=== PATIENT | female | born 1970 | race Caucasian/White ===

== ENCOUNTER 2023-07-05 00:54 | Day surgery (SDC) | payer BC, SELFPAY ==
[2023-06-23 08:37] VITALS: BMI 23.1
[2023-07-05 07:20] VITALS: BP 131/90; PULSE 67; RESP 20; TEMP 35.8; O2SAT 98
[2023-07-05] MEDS: LACTATED RINGERS 1,000 ML 150 ML IV CONT (07:32)
--- NOTE | 2023-07-05 07:52 | P.PNAN_ITS ---
Anes - Initial Pre Proc Eval Procedure: Operation Date: 07/05/23 08:30 Proposed Procedures p Screening Colonoscopy - Dean Mcguire MD Date/Time: 07/05/23 07:52 Surgeon: Dean Mcguire MD Pre Op Diagnosis: neoplasm screening Patient Data Age: 53 Gender: F Height: 1.83 m Weight: 71 kg Last Vital Signs Temp 35.8 C L 07/05/23 07:20 Pulse 67 07/05/23 07:20 Resp 20 07/05/23 07:20 BP 131/90 07/05/23 07:20 Pulse Ox 98 07/05/23 07:20 O2 Del Method Room Air 07/05/23 07:20 Allergies Allergy/AdvReac Type Severity Reaction Status Date / Time No Known Allergies Allergy Mild Verified 07/05/23 07:19 Home Medications Medication Instructions Recorded Confirmed Type alprazolam 0.25 mg tablet 500 mg PO PRN PRN Anxiety 06/23/23 06/23/23 History valacyclovir 500 mg tablet 500 mg PO PRN PRN fever blisters 06/23/23 06/23/23 History Patient hx anesthesia problems: none Family hx anesthesia problems: none Results Review: All pre-operative results and documents have been reviewed as part of the pre- operative evaluation. [facility] Social History Social History Smoking status: Never smoker Alcohol intake: current Drinks per week: 12 Alcohol use details: 2 drinks a night Substance use: never Substance use type: does not use Living arrangements: alone Spiritual care concerns: No Anes - Eval Final PreProcedure Day of Procedure 07/05/23 07:52 Patient weight: normal Heart: regular rate and rhythm Lungs: clear to auscultation Airway: Mallampati scale class 1 Neurological: alert and oriented Last oral intake: >/= 8 hours ASA classification: II Emergent: no Anesthetic plan: proceed Anesthesia type and monitoring: general GIVS and standard monitoring Results Review: All pre-operative results and documents have been reviewed as part of the pre- operative evaluation. Informed Consent: The patient's anesthetic plan and its attendant risks and benefits were discussed with the patient/family/POA. Questions were solicited and answers provided to the satisfaction of the patient/family/POA.
--- NOTE | 2023-07-05 08:04 | P.HP_ITS ---
History of Present Illness History of Present Illness Consent: Risks, benefits, and alternatives have been discussed and questions answered. Patient agrees to proceed with procedure. Chief complaint: neoplasm screening Narrative: Steff Green is a 53 year old female here for first screening colonoscopy Review of Systems Constitutional: Constitutional: Denies headache(s) and Denies weakness Eyes: Eyes: Denies blurry vision ENT: Reports Normal hearing present, Denies headache(s) and Denies neck pain Cardiovascular: Cardiovascular: Denies chest pain and Denies dyspnea Respiratory: Respiratory: Denies dyspnea Gastrointestinal: Gastrointestinal: Reports no additional gastrointestinal complaints Genitourinary: Genitourinary: Denies dysuria Musculoskeletal: Musculoskeletal: Denies neck pain Integumentary/Breasts: Skin/Breast: Denies dry skin Neurologic: Reports Normal hearing present, Denies headache(s) and Denies weakness Psychiatric: Psychiatric: Denies anxiety Endocrine: Endocrine: Denies change in body appearance Hematologic/Lymphatic: Hematologic/Lymphatic: Denies easy bleeding Allergic/Immunologic: Allergic/Immunologic: Denies urticaria [facility] Past Medical History Medical History (Updated 07/05/23 @ 08:05 by Dean Mcguire MD) Colon cancer screening Social History Social History Smoking status: Never smoker Alcohol intake: current Drinks per week: 12 Alcohol use details: 2 drinks a night Substance use: never Substance use type: does not use Living arrangements: alone Spiritual care concerns: No Meds Home Medications and Allergies Home Medications Medication Instructions Recorded Confirmed Type alprazolam 0.25 mg tablet 500 mg PO PRN PRN Anxiety 06/23/23 06/23/23 History valacyclovir 500 mg tablet 500 mg PO PRN PRN fever blisters 06/23/23 06/23/23 History Allergies Allergy/AdvReac Type Severity Reaction Status Date / Time No Known Allergies Allergy Mild Verified 07/05/23 07:19 Vital Signs Vital Signs - 24 hr 07/05/23 07:20 Temperature 96.5 F L Pulse Rate 67 Respiratory Rate 20 Blood Pressure 131/90 Pulse Oximetry 98 Oxygen Delivery Room Air Exam Const: General: comfortable and no acute distress HENMT: Face/Nose/Sinus: Normal nares present Eyes: General: appearance normal, both eyes and all related structures Neck: Neck: no JVD Resp: Auscultation: clear to auscultation bilaterally Cardio: Rate: regular rate Rhythm: regular rhythm GI: Inspection: non-distended GI Palp: Yes Soft to palpation Skin: General skin exam: normal color Neuro: General: gait normal Speech: normal speech Extrem: General: normal to inspection Psych: Mental Status: mental status grossly normal Assessment and Plan Assessment and plan (1) Colon cancer screening: Code(s): Z12.11 - Encounter for screening for malignant neoplasm of colon Status: Acute Assessment and Plan: colonoscopy
[2023-07-05 08:23] VITALS: BP 113/68; PULSE 77; RESP 19; O2SAT 99
[2023-07-05 08:33] VITALS: BP 128/80; PULSE 60; RESP 18; O2SAT 100
[2023-07-05 08:43] VITALS: BP 130/87; PULSE 69; RESP 25; O2SAT 100
== END 2023-07-05 08:47 | disposition home or self-care (01) ==
PROVIDERS: Referring Provider Obstetrics & Gynecology; Visit Provider Internal Medicine Gastroenterology
PROC: 0DJD8ZZ Inspection of Lower Intestinal Tract, Via Natural or Artificial Opening Endoscopic (ICD-10-PCS; CPT 45378; principal; 2023-07-05 08:30)
DX: Z12.11 Encounter for screening for malignant neoplasm of colon (principal)
CPT/HCPCS: 45378; J2704; J7120

== ENCOUNTER → 2023-12-08 14:48 | Outpatient (CLI) | payer BC, SELFPAY ==
--- NOTE | ~2023-12-08 | CT_ITS ---
EXAMINATION: CT abdomen pelvis wo con DATE: 12/08/2023 14:58 INDICATION: Abdominal cramping. Urinary tract infection. TECHNIQUE: Computed tomography (CT) of the abdomen and pelvis was performed without intravenous contr ast. Automated exposure control and iterative reconstruction technique were employed. Exam dose: 491 .80 mGy-cm total exam DLP. COMPARISON: None. FINDINGS: Bilateral breast implants. The lung bases are clear. Normal heart size. No pericardial or pleural effusion. The liver, gallbladder, bile ducts, spleen, pancreas, pancreatic duct, and adrenal glands and kidneys are unremarkable on this limited noncontrast examination. No urinary tract calculus or hydroureteron ephrosis. The urinary bladder is evacuated. The uterus and adnexal areas are unremarkable. Normal caliber of the abdominal aorta. No intraperitoneal or retroperitoneal or pelvic mass lesion or adenopathy or ascites. Normal appendix. No bowel obstruction, bowel wall thickening, pneumatosis or intraperitoneal free air is detected. Degenerative changes of the apophyseal joints with associated grade 1 anterolisthesis at L4-5. Modera tely prominent degenerative disease at L5-S1. Bilateral hip osteoarthritis, greater on the left. No suspicious osteolytic or osteoblastic lesions a re noted. IMPRESSION: Normal appendix No urinary tract calculus or hydroureteronephrosis Urinary bladder is evacuated, not optimally demonstrated Reviewed, dictated and finalized at Location A. Reviewed, dictated and finalized at location B. TESTER
--- NOTE | ~2023-12-08 | XR_ITS ---
XR foot RT min 3V DATE: 12/08/2023 16:05 INDICATION: Right foot pain TECHNIQUE: 4 views COMPARISON: None FINDINGS: There is diffuse osteopenia. There is angulation of the medial neck of the second metatarsal bone, with some periosteal reaction a long the medial aspect of the neck and distal shaft of the second metatarsal bone, suggesting a heali ng subtle nondisplaced fracture. No the other fracture, dislocation, periosteal reaction or bone destruction. There is some lucency in the head of the second metatarsal bone which may indicate osteoarthritic geovanna nge or avascular necrosis. There is moderate osteoarthritic change at the left second metatarsophalan geal joint. There is mild osteoarthritis at the first metatarsophalangeal joint. No erosive change is noted. IMPRESSION: Suspected healing subtle nondisplaced fracture of the neck of the second metatarsal bone Osteoarthritic changes at first and second metatarsophalangeal joints; focal lucency of the head of t he second metatarsal bone may be secondary to avascular necrosis or osteoarthritic change. Osteopenia and Reviewed, dictated and finalized at location A. VIORAL HEALTH WORKER IMPRESSION: Suspected healing subtle nondisplaced fracture of the neck of the s econd metatarsal bone Osteoarthritic changes at first and second metatarsophalangeal joints; focal maricruz cency of the head of the second metatarsal bone may be secondary to avascular n ecrosis or osteoarthritic change. Osteopenia and
--- NOTE | ~2023-12-08 | XR_ITS ---
XR scoliosis survey DATE: 12/08/2023 16:04 INDICATION: Back pain. Scoliosis. TECHNIQUE: AP and lateral views of cervical, thoracic and lumbar spine; breast naranjo. COMPARISON: None FINDINGS: There is diffuse osteopenia. There is reversal of cervical curvature. There is approximately 2.5 mm anterolisthesis at C4-5. There is severe degenerative disc disease with posterior spurring at C5-6 and C6-7. There is mild thoracolumbar levoscoliosis. There is mild loss of height and anterior wedging of T8, likely due to old mild compression fracture. Mild depression of the superior vertebral endplate of T9, likely due to mild old compression fracture . No thoracic spine or lumbar spine bone destruction. Thoracic and lumbar pedicles appear intact. Degenerative change at the apophyseal joints in the lumbar region with associated grade 1 anterolisth esis at L3-4 and L4-5. There is mild to moderate degenerative disc disease at L3-4, L4-5 and moderately severe degenerative disease at L5-S1. The sacroiliac joints are intact. IMPRESSION: Osteopenia 2.5 mm anterolisthesis at C4-5 Severe degenerative disc disease at C5-6 and C6-7 Mild levoscoliosis of the thoracolumbar spine Probable old compression fracture deformities of T8 and to a minimal extent T9 Lumbar spondylosis including multilevel degenerative disc disease and grade 1 anterolisthesis at L3-4 and L4-5 due to degenerative changes apophyseal joints Reviewed, dictated and finalized at Location A. Reviewed, dictated and finalized at location A. COMMUNICATIONS SUPPORT IMPRESSION: Osteopenia 2.5 mm anterolisthesis at C4-5 Severe degenerative disc disease at C5-6 and C6-7 Mild levoscoliosis of the thoracolumbar spine Probable old compression fracture deformities of T8 and to a minimal extent T9 Lumbar spondylosis including multilevel degenerative disc disease and grade 1 a nterolisthesis at L3-4 and L4-5 due to degenerative changes apophyseal joints
--- NOTE | ~2023-12-08 | MR_ITS ---
EXAMINATION: MR brain/brain stem wo/w con DATE: 12/08/2023 15:27 INDICATION: H53.9 - Unspecified visual disturbance TECHNIQUE: Magnetic resonance imaging (MRI) of the brain and brainstem was performed without intraven ous contrast. Sequences included sagittal and axial T1-weighted SE, axial diffusion-weighted FS EPI A SSET, axial T2*-weighted GRE, axial T2-weighted FLAIR Propeller, and axial T2-weighted Propeller. Pos tcontrast axial and coronal T1-weighted SE was obtained. Apparent diffusion coefficient (ADC) maps we re created. COMPARISON: None. FINDINGS: No abnormal restricted diffusion to suggest acute ischemic infarct. No MRI evidence of hemorrhage or extra-axial collection. No suspicious foci of susceptibility to suggest prior intraparenchymal hemorr sandra. Scattered foci of white matter hyperintensity, likely representing mild small vessel ischemic d isease. No evidence of advanced or lobar predominant parenchymal volume loss. The basilar cisterns ar e patent. Flow voids are preserved. Mild pituitary enlargement. Paranasal sinuses are within normal l imits. Globes and orbital contents are within normal limits. IMPRESSION: Mildly enlarged pituitary gland. Consider MRI of the pituitary without and with contrast for further evaluation. Reviewed, dictated and finalized at location K. EL MAKER
== END ==
PROVIDERS: PCP Internal Medicine; Visit Provider Internal Medicine
DX: N39.0 Urinary tract infection, site not specified (principal); R10.9 Unspecified abdominal pain; H53.9 Unspecified visual disturbance; M79.671 Pain in right foot; M54.9 Dorsalgia, unspecified; M50.323 Other cervical disc degeneration at C6-C7 level; M50.322 Other cervical disc degeneration at C5-C6 level; M47.896 Other spondylosis, lumbar region; M19.071 Primary osteoarthritis, right ankle and foot; M85.871 Other specified disorders of bone density and structure, right ankle and foot
CPT/HCPCS: 70553; 72082; 73630; 74176; A9577

== ENCOUNTER 2023-12-15 12:51 | Outpatient (CLI) | payer BC, SELFPAY ==
[2023-12-15 18:26] LABS: Appearance Urine Cloudy (Clear); Bacteria Urine 4+ /hpf; Bilirubin Urine Negative (Negative); Color Urine Yellow (Yellow); Glucose Urine UA Negative (Negative); Ketones Urine Negative (Negative); Leukocyte Esterase Ur 3+ LEU/UL (NEGATIVE); Nitrate Urine Negative (Negative); Non Pathogenic Casts 0-2; Protein Urine Negative (Negative); RBC Urine 0-2 /hpf (0-2); Specific Grav Ur 1.007 (1.001-1.035); Squamous Epithelial Cell Urine None seen /hpf (Few); Urobilinogen Urine 0.2 mg/dL (<2.0); WBC Urine >100 /hpf (0-3)
[2023-12-15 18:34] LABS: Add Urine Microscopic? YES
== END 2023-12-15 12:52 | disposition home or self-care (01) ==
LOC: ANHGOSHLAB 12:53
PROVIDERS: PCP Internal Medicine; Visit Provider Internal Medicine
DX: R39.9 Unspecified symptoms and signs involving the genitourinary system (principal)
CPT/HCPCS: 81001

== ENCOUNTER 2023-12-31 08:35 | Outpatient (CLI) | payer BC, SELFPAY ==
--- NOTE | ~2023-12-31 | MR_ITS ---
EXAMINATION: MR pituitary wo/w con DATE: 12/31/2023 09:49 INDICATION: Unspecified visual disturbance. TECHNIQUE: Magnetic resonance imaging (MRI) of the brain and brainstem was performed without and with 14 mL MultiHance intravenous contrast. COMPARISON: Brain MRI 12/08/2020 FINDINGS: The pituitary is normal in size with height of 8 mm and concave superior margin. The infund ibulum is at the midline. There are scattered areas of nonspecific increased T2-weighted signal inten sity in the cerebral white matter, which is within normal limits for the patient's age. There is no i ntracranial hemorrhage, acute infarction, or abnormal intracranial mass lesion. The ventricles are no rmal in size. There is mild mucosal thickening in the ethmoid sinuses. The orbits are normal. The mas toid air cells are normal. IMPRESSION: 1. Normal aging brain. Normal pituitary. Reviewed, dictated and finalized at location A. RVISOR S[employer]KE CONTR[employer]
== END 2023-12-31 08:36 | disposition home or self-care (01) ==
PROVIDERS: PCP Internal Medicine; Visit Provider Internal Medicine
DX: H53.9 Unspecified visual disturbance (principal); E23.6 Other disorders of pituitary gland
CPT/HCPCS: 70553; A9577

== ENCOUNTER 2025-03-05 14:56 | Outpatient (CLI) | payer BC, SELFPAY ==
--- NOTE | ~2025-03-05 | MM_ITS ---
EXAMINATION: MM scrn sakina implant BI w rafael HISTORY: Screening mammogram TECHNIQUE: Craniocaudal and mediolateral oblique 3-D tomosynthesis images with implant displacement a nd synthetic 2-D images were generated. Craniocaudal and mediolateral oblique views of the breasts wi thout implant displacement were obtained using full field digital mammography. CAD analysis was submi tted and interpreted. COMPARISON: Comparison to multiple prior studies sequentially, with oldest reviewed study dated 09/21. BREAST PARENCHYMAL COMPOSITION: Not dense: There are scattered areas of fibroglandular density. FINDINGS: There are no suspicious masses, calcifications or architectural distortion in the right natalee ast to suggest malignancy. There are 2 new masses in the left breast involving the upper central left breast, middle third and upper inner quadrants of the left breast, posterior third. IMPRESSION: 1. New left breast masses. 2. Additional mammographic views and possible breast ultrasound are recommended. BI-RADS Category 0: Incomplete: Needs additional imaging evaluation. Reviewed, dictated and finalized at location B. IMPRESSION: 1. New left breast masses. 2. Additional mammographic views and possible breast ultrasound are recommended . BI-RADS Category 0: Incomplete: Needs additional imaging evaluation.
--- OUTSIDE RECORDS SUMMARY | 2025-03-05 16:11 | XMS_ITS | Clinical Summary ---
Author Organization [facility] Address [address] [place] [address] Care Team Providers Care Senior Clinical Data Analyst Name Role Phone Carlton Martin MD Primary Care Provider [phone] Source Comments [facility],non-owned Affiliates and Associated Physician Practices is amultiple site organization consisting of ambulatory clinics and hospital sitesin [place], [place], [place] and [place]. This disclosure is being madepursuant to the Care Everywhere program and may not contain all information available regarding this patient. Last updated 18.[facility] Allergies No known active allergies Medications * Be aware that medications may not be up to date on this document. Alwaysverify current medications with the patient. predniSONE (DELTASONE) 10 MG tablet 5 tabs po x2 days, 4 tabs po x2 days, 3 tabs po x2 days, 2 tabs po x2 days, 1 tab po x2 days 30 Tab 12/05/2016 Active Social History Tobacco Use Types Packs/Day Years Used Date Smoking Tobacco: Never Comments Unknown Sex and Gender Information Value Date Recorded Sex Assigned at Not on file Legal Sex Female 3:45 PM SENIOR NET SOFTWARE ENGINEER Gender Identity Not on file Sexual Orientation Not on file Last Filed Vital Signs Vital Sign Reading Time Taken Comments Blood Pressure 116/88 12/05/2016 4:57 PM SENIOR NET SOFTWARE ENGINEER Pulse 68 12/05/2016 4:57 PM SENIOR NET SOFTWARE ENGINEER Temperature 36.7 C (98 F) 12/05/2016 4:57 PM SENIOR NET SOFTWARE ENGINEER Respiratory Rate 16 12/05/2016 4:57 PM SENIOR NET SOFTWARE ENGINEER Oxygen Saturation 97% 12/05/2016 4:57 PM SENIOR NET SOFTWARE ENGINEER Inhaled Oxygen Concentration - - Weight 70.3 kg (155 lb) 12/05/2016 4:57 PM SENIOR NET SOFTWARE ENGINEER Height 182.9 cm (6') 12/05/2016 4:57 PM SENIOR NET SOFTWARE ENGINEER Body Mass Index 21.02 12/05/2016 4:57 PM SENIOR NET SOFTWARE ENGINEER Plan of Treatment Health Maintenance Due Date Last Done Comments COLOGUARD (AGES 45-75) - COL ON CA SCREENING 1969 COLON MONITORING 1969 COLONOSCOPY - COLON CA SCREENING 1969 CT COLONOGRAPHY - COLON CA SCREENING 1969 Colorectal Cancer Screening 1969 FIT - COLON CA SCREENING 1969 FLEX SIG - COLON CA SCREENING 1969 LIPID TESTING 1969 MAMMOGRAM 1969 PAP SMEAR 1969 HIV SCREENING 1984 HEPATITIS C SCREENING 01/12/1987 DTAP/TDAP/TD VACCINES (1 - Tdap) 1988 HEPATITIS B VACCINE (1 of 3 - 19+ 3-dose series) 1988 PNEUMOCOCCAL VACCINE 50+ (1 of 1 - PCV) 2019 ZOSTER VACCINE (1 of 2) 2019 COVID-19 VACCINE (1 - 2023-2 5 season) 2024 DEPRESSION SCREENING 11/20/2024 INFLUENZA VACCINE (Season Ended) 2025 HIB VACCINE Aged Out No longer eligi ble based on patient's age to complete this topic HPV VACCINE Aged Out No longer eligi ble based on patient's age to complete this topic MENINGOCOCCAL (Group B) VACC INE SHARED DECISION-MAKING Aged Out No longer eligibl e based on patient's age to complete this topic MENINGOCOCCAL GROUPS A/C/Y/W VACCINE Aged Out No longer eligible b ased on patient's age to complete this topic PNEUMOCOCCAL VACCINE Aged Out No long er eligible based on patient's age to complete this topic [facility] Care Teams Senior Clinical Data Analyst Relationship Specialty Start Date End Date Carlton Martin MD [facility] [place] [address] PCP - General Family Medicine 12/05/16
== END 2025-03-05 14:57 | disposition home or self-care (01) ==
LOC: ANHIMG 14:57
PROVIDERS: PCP Internal Medicine; Visit Provider Internal Medicine
DX: Z12.31 Encounter for screening mammogram for malignant neoplasm of breast (principal); R92.8 Other abnormal and inconclusive findings on diagnostic imaging of breast
CPT/HCPCS: 77063; 77067

== ENCOUNTER 2025-03-11 08:25 | Outpatient (CLI) | payer BC, SELFPAY ==
--- NOTE | ~2025-03-11 | MMUS_ITS ---
EXAMINATION: MM diag sakina implant LT w rafael, US breast LT limited HISTORY: Follow-up left breast mass TECHNIQUE: Additional 3-D tomosynthesis images of the left breast were performed and synthetic 2-D im ages were generated. CAD analysis was submitted and interpreted. High resolution Limited left breast ultrasound was performed. COMPARISON: Comparison to multiple prior studies sequentially, with oldest reviewed study dated 09/21. BREAST PARENCHYMAL COMPOSITION: Not dense: There are scattered areas of fibroglandular density. FINDINGS: MAMMOGRAPHIC FINDINGS: There are persistent asymmetries in the upper central aspect of the left breast. There is a left symone st implant. No suspicious calcifications or architectural distortion. ULTRASOUND: Limited left breast ultrasound at 11:00, 3 cm from the nipple a 6 mm cyst likely corresponding to the focal asymmetry . IMPRESSION: 1. No evidence for malignancy in the left breast. Benign finding. 2. Routine yearly screening mammogram and regular clinical breast examination are recommended. BI-RADS Category 2: Benign finding(s). Reviewed, dictated and finalized at location A. IMPRESSION: 1. No evidence for malignancy in the left breast. Benign finding. 2. Routine yearly screening mammogram and regular clinical breast examination a re recommended. BI-RADS Category 2: Benign finding(s).
--- OUTSIDE RECORDS SUMMARY | 2025-03-11 08:43 | XMS_ITS | Clinical Summary ---
Author Organization [facility] [employer] Address [address] [place] [address] Care Team Providers Care Sales And Marketing Vice President Name Role Phone Carlton Martin MD Primary Care Provider Source Comments [facility] [employer],non-owned Affiliates and Associated Physician Practices is amultiple site organization consisting of ambulatory clinics and hospital sitesin [place], [place], [place] and [place]. This disclosure is being madepursuant to the Care Everywhere program and may not contain all information available regarding this patient. Last updated 18.[facility] [employer] Allergies No known active allergies Medications * [...] on file Legal Sex Female 3:45 PM INTERNATIONAL RELATIONS PROFESSOR Gender Identity Not on file Sexual Orientation Not on file Last Filed Vital Signs Vital Sign Reading Time Taken Comments Blood Pressure 116/88 12/05/2016 4:57 PM INTERNATIONAL RELATIONS PROFESSOR Pulse 68 12/05/2016 4:57 PM INTERNATIONAL RELATIONS PROFESSOR Temperature 36.7 C (98 F) 12/05/2016 4:57 PM INTERNATIONAL RELATIONS PROFESSOR Respiratory Rate 16 12/05/2016 4:57 PM INTERNATIONAL RELATIONS PROFESSOR Oxygen Saturation 97% 12/05/2016 4:57 PM INTERNATIONAL RELATIONS PROFESSOR Inhaled Oxygen Concentration - - Weight 70.3 kg (155 lb) 12/05/2016 4:57 PM INTERNATIONAL RELATIONS PROFESSOR Height 182.9 cm (6') 12/05/2016 4:57 PM INTERNATIONAL RELATIONS PROFESSOR Body Mass Index 21.02 12/05/2016 4:57 PM INTERNATIONAL RELATIONS PROFESSOR Plan of Treatment Health Maintenance Due Date Last Done Comments COLOGUARD (AGES 45-75) - COL ON CA SCREENING 1969 COLON MONITORING 1969 COLONOSCOPY - COLON CA SCREENING 1969 CT COLONOGRAPHY - COLON CA SCREENING 1969 Colorectal Cancer Screening 1969 FIT - COLON CA SCREENING 1969 FLEX SIG - COLON CA SCREENING 1969 LIPID TESTING 1969 MAMMOGRAM 1969 HIV SCREENING 1984 HEPATITIS C SCREENING [...] patient's age to complete this topic Insurance [facility] [place] [id number] Care Teams Sales And Marketing Vice President Relationship Specialty Start Date End Date Carlton Martin MD [address] [place] [address] PCP - General Family Medicine 12/05/16
== END 2025-03-11 08:26 | disposition home or self-care (01) ==
LOC: CHSIMG 08:27
PROVIDERS: PCP Internal Medicine; Visit Provider Internal Medicine
DX: R92.8 Other abnormal and inconclusive findings on diagnostic imaging of breast (principal)
CPT/HCPCS: 76642; 77061; 77065; G0279